=== PATIENT | female | born 1940 | race Caucasian/White ===

== ENCOUNTER 2024-10-05 21:08 | Emergency (ER) | payer MEDICARE, BC ==
[~2024-10-05] VITALS: Ht 170.2 cm; Wt 68.0 kg
[2024-10-05 21:11] VITALS: TEMP 37.2; O2SAT 100
[2024-10-05 21:42] LABS: BASOPHILS % 0.5 % (0.0-2.0); EOSINOPHILS % 0.5 % (0.0-5.0); LYMPHOCYTES % 13.5 % (20.0-50.0); MEAN CORPUSCULAR HEMOGLOBIN 31.6 pg (28.0-32.0); MEAN CORPUSCULAR HGB CONC 33.3 g/dL (31.0-37.0); MEAN CORPUSCULAR VOLUME 94.9 fL (81.0-99.0); MEAN PLATELET VOLUME 8.9 fl (7.4-10.4); MONOCYTES % 6.8 % (2.0-8.0); NEUTROPHILS % 78.7 % (40.0-76.0); PLATELET 208 x1000/uL (130-400); RED BLOOD CELL COUNT 4.74 mill/uL (4.2-5.4); RED CELL DISTRIBUTION WIDTH 15.3 % (11.6-14.6); WHITE BLOOD COUNT 8.5 x1000/uL (4.5-11.0)
[2024-10-05 21:46] VITALS: O2SAT 98
[2024-10-05 21:47] LABS: CHLORIDE 104 mEq/L (98-107); POTASSIUM 4.4 mEq/L (3.5-5.1); SODIUM 141 mEq/L (136-145)
[2024-10-05 21:48] LABS: CALCIUM 9.9 mg/dL (8.7-10.4); CARBON DIOXIDE 27 mEq/L (21-32)
[2024-10-05 21:52] VITALS: BP 142/82; PULSE 69; RESP 10; TEMP 98.9
[2024-10-05 21:52] LABS: PARTIAL THROMBOPLASTIN TIME 26.2 sec (23.4-31.0); PROTHROMBIN TIME 10.7 sec (9.6-11.0)
[2024-10-05 21:53] LABS: CREATININE 1.4 mg/dL (0.6-1.0); GLUCOSE 152 mg/dL (70-105)
[2024-10-05 21:54] LABS: UREA NITROGEN BLOOD 27 mg/dL (9-23)
[2024-10-05 21:55] LABS: ALANINE AMINOTRANSFERASE 11 IU/L (10-49); ALBUMIN 4.5 g/dL (3.2-4.8); ASPARTATE AMINOTRANSFERASE 15 IU/L (<34)
[2024-10-05 21:56] LABS: BILIRUBIN DIRECT 0.2 mg/dL (<=3.0); BILIRUBIN TOTAL 0.8 mg/dL (0.1-1.0)
[2024-10-05 21:57] LABS: ETHANOL BLOOD < 10 mg/dL (<10); TROPONIN I HIGH SENSITIVITY < 4 ng/L (3.0-34)
[2024-10-05] MEDS ORDERED: ASPIRIN 81MG TABLET PO ONE (22:45)
[2024-10-05] MEDS ORDERED: FUROSEMIDE 40MG/4ML VIAL IVP ONE (22:45)
== END 2024-10-05 23:15 | disposition left against medical advice (07) ==
LOC: ER 21:08 → EDBEDREQ 21:33 → ER 23:15
DX: R55 Syncope and collapse (principal); R06.02 Shortness of breath; R10.9 Unspecified abdominal pain; I50.9 Heart failure, unspecified; Z88.0 Allergy status to penicillin
CPT/HCPCS: 36415; 71045; 80048; 80076; 80320; 83880; 84484; 85025; 93005; 99285; G0480